=== PATIENT | female | born 1990 | race Caucasian/White ===

== ENCOUNTER 2017-01-07 20:53 | Inpatient (IN) | payer BC ==
[~2017-01-07] VITALS: Ht 170.2 cm; Wt 83.9 kg
[~2017-01-07 20:53] MED LIST: DEPO-LUPRON IM; ETOMIDATE 20 MG/10 ML ONE; HYDR-3241 PO; MIDAZOLAM 1 MG/ML, 5ML ONE; PHEN37.53 PO; PHENERGAN PO; PROPOFOL 10 MG/ML, 100ML IV ONE; SUCCINYLCHOLINE 20 MG/ML, 10ML ONE; VECURONIUM 10 MG ONE
[2017-01-07] MEDS ORDERED: FENTANYL PF 100 MCG/2ML ONE (21:27)
[2017-01-07] MEDS ORDERED: SODIUM CHLORIDE 0.9% 1,000ML IVBOLUS ONE ×2 (21:30)
[2017-01-07] MEDS ORDERED: FENTANYL PF 100 MCG/2ML IV ONE (21:30)
[2017-01-07] MEDS ORDERED: PROPOFOL 100 ML IV PRN (21:30)
[2017-01-07] MEDS ORDERED: SUCCINYLCHOLINE 20 MG/ML, 10ML IVPush ONE (21:30)
[2017-01-07] MEDS ORDERED: FENTANYL PF 100 MCG/2ML IVPush PRN (21:30)
[2017-01-07] MEDS ORDERED: ETOMIDATE 20 MG/10 ML IVPush ONE (21:30)
[2017-01-07] MEDS ORDERED: methylPREDNISolone SOD SUCC 125 MG/2 ML IVP ONE (21:30)
[2017-01-07 21:42] LABS: ASPARTATE AMINO TRANSFERASE 30 U/L (15-37); BLOOD UREA NITROGEN 10 mg/dL (7-18)
[2017-01-07 21:47] LABS: ACETAMINOPHEN 5 mcg/mL (10-30)
[2017-01-07 21:48] LABS: DAU SCREEN DISCLAIMER
[2017-01-07 21:48] LABS: IS PT STATUS REG ER OR PRE ER? YES
[2017-01-07] MEDS ORDERED: FAMOTIDINE 20 MG/2 ML IVPush ONE (22:30)
[2017-01-07] MEDS ORDERED: FENTANYL PF 2,500 MCG in SODIUM CHLORIDE 0.9% 200 ML IV PRN (22:30)
[2017-01-07] MEDS ORDERED: MIDAZOLAM 1 MG/ML, 5ML IVPush ONE (22:30)
[2017-01-07] MEDS ORDERED: SODIUM CHLORIDE 0.9% 1,000 ML IV ONE (22:44)
[2017-01-07 22:57] VITALS: BP 106/59
[2017-01-07] MEDS ORDERED: ONDANSETRON 2MG/ML, 2ML IVPush PRN (23:00)
[2017-01-07] MEDS ORDERED: methylPREDNISolone SOD SUCC 125 MG/2 ML ONE (23:09)
[2017-01-07] MEDS ORDERED: ONDANSETRON 2MG/ML, 2ML ONE (23:09)
[2017-01-07] MEDS ORDERED: FAMOTIDINE 20 MG/2 ML ONE (23:09)
[2017-01-07] MEDS ORDERED: SENNOSIDES 8.8 MG/5 ML ORAL SOL NG PRN (23:30)
[2017-01-07] MEDS ORDERED: BISACODYL 10 MG SUPP PR PRN (23:30)
[2017-01-07] MEDS ORDERED: PHARMACY MAY ADJ FOR RENAL FX MC SCH (23:30)
[2017-01-07] MEDS: FAMOTIDINE 20 MG/2 ML IV SCH (23:30)
[2017-01-07] MEDS ORDERED: LACTULOSE 20 GM/30 ML UDC NG PRN (23:30)
[2017-01-07] MEDS ORDERED: SENNA/DOCUSATE TABLET NG PRN (23:30)
[2017-01-07] MEDS ORDERED: LIDOCAINE-MPF 1%, 2ML ENDO PRN (23:30)
[2017-01-07] MEDS ORDERED: PROPOFOL 100 ML IV ONE (23:52)
[2017-01-07 23:56] LABS: ABG COLLECTION SITE LEFT RADIAL; COLLATERAL CIRCULATION TESTING NORMAL
[2017-01-08] MEDS ORDERED: BISACODYL 10 MG SUPP PR PRN
[2017-01-08] MEDS ORDERED: PROMETHAZINE 25 MG/ML, 1ML IM PRN
[2017-01-08] MEDS: POTASSIUM CHLORIDE 40 MEQ in SODIUM CHLORIDE 0.9% 1,000 ML IV SCH ×2 (00:24→06:19)
[2017-01-08] MEDS ORDERED: MIDAZOLAM HCL 50 MG in SODIUM CHLORIDE 0.9% 240 ML IV PRN (01:00)
[2017-01-08] MEDS: ENOXAPARIN 40 MG/0.4 ML SQ SCH (01:42)
[2017-01-08] MEDS: methylPREDNISolone SOD SUCC 125 MG/2 ML IVPush SCH ×4 (01:42→18:03)
[2017-01-08] MEDS ORDERED: ALBUTEROL SULFATE 2.5 MG/3 ML ONE (02:29)
[2017-01-08] MEDS ORDERED: PROPOFOL 100 ML IV PRN (03:30)
[2017-01-08 04:38] LABS: ABG COLLECTION SITE LEFT RADIAL; COLLATERAL CIRCULATION TESTING NORMAL
[2017-01-08 04:42] LABS: BLOOD UREA NITROGEN 9 mg/dL (7-18)
[2017-01-08] MEDS: morphine SULFATE 10 MG/ML, 1ML IVPush PRN ×5 (08:20→21:13)
[2017-01-08] MEDS ORDERED: HYDR-879 PO (09:12)
[2017-01-08] MEDS ORDERED: RACEPINEPHRINE INH 2.25%, 0.5ML ONE (09:26)
[2017-01-08] MEDS: HYDROcodone/APAP 10/325 MG TABLET PO PRN ×3 (09:29→22:25)
[2017-01-08] MEDS: ONDANSETRON 2MG/ML, 2ML IVPush PRN ×3 (11:17→22:25)
[2017-01-08] MEDS: FAMOTIDINE 20 MG/2 ML IV SCH (12:05)
[2017-01-09] MEDS: FAMOTIDINE 20 MG/2 ML IV SCH (00:10)
[2017-01-09] MEDS: methylPREDNISolone SOD SUCC 125 MG/2 ML IVPush SCH ×3 (00:11→12:00)
[2017-01-09] MEDS: ENOXAPARIN 40 MG/0.4 ML SQ SCH (02:04)
[2017-01-09] MEDS: morphine SULFATE 10 MG/ML, 1ML IVPush PRN ×2 (02:05→05:54)
[2017-01-09] MEDS: ONDANSETRON 2MG/ML, 2ML IVPush PRN (04:35)
[2017-01-09] MEDS: HYDROcodone/APAP 10/325 MG TABLET PO PRN ×2 (04:35→09:21)
[2017-01-09 04:46] LABS: ABG COLLECTION SITE LEFT RADIAL; COLLATERAL CIRCULATION TESTING NORMAL
[2017-01-09 04:58] LABS: BLOOD UREA NITROGEN 14 mg/dL (7-18)
[2017-01-09] MEDS ORDERED: GABA300C10 PO (08:16)
[2017-01-09] MEDS ORDERED: FAMOTIDINE 20 MG TABLET PO SCH (10:00)
[2017-01-09] MEDS ORDERED: METH4TAB2 PO (10:20)
[2017-01-09] MEDS ORDERED: EPIN0.3P2 IM (10:20)
[2017-01-09] MEDS ORDERED: FLUCONAZOLE 100 MG TABLET PO ONE (11:00)
[2017-01-10 11:07] LABS: COMPLEMENT C3 131 mg/dL (82-167); COMPLEMENT C4 27 mg/dL (14-44); COMPLEMENT TOTAL (CH50) 55 U/mL (42-60)
== END 2017-01-09 13:44 | disposition home or self-care (01) | DRG 915 ==
LOC: ED 21:43 → EDIP 22:44 → CCU 23:39
PROC: 5A1935Z Respiratory Ventilation, Less than 24 Consecutive Hours (ICD-10-PCS; principal; 2017-01-07)
PROC: 0BH17EZ Insertion of Endotracheal Airway into Trachea, Via Natural or Artificial Opening (ICD-10-PCS; 2017-01-07)
PROC: 0T9B70Z Drainage of Bladder with Drainage Device, Via Natural or Artificial Opening (ICD-10-PCS; 2017-01-07)
DX: T78.2XXA Anaphylactic shock, unspecified, initial encounter (principal); J96.01 Acute respiratory failure with hypoxia; G92 Toxic encephalopathy; J93.82 Other air leak; Z99.11 Dependence on respirator [ventilator] status; B37.3 Candidiasis of vulva and vagina; M54.9 Dorsalgia, unspecified; E87.6 Hypokalemia; R78.0 Finding of alcohol in blood; Z79.890 Hormone replacement therapy; Z87.892 Personal history of anaphylaxis; Z88.5 Allergy status to narcotic agent; Z90.710 Acquired absence of both cervix and uterus; Z90.49 Acquired absence of other specified parts of digestive tract
CPT/HCPCS: 36415; 36600; 70450; 71010; 80048; 80053; 80307; 80329; 81003; 82803; 83735; 84478; 84484; 85025; 86160; 86162; 87070; 87081; 87205; 93005; 94002; 94003; 94640; 96361; 96365; 96375; J1650; J2250; J2405; J2704; J3010; J3480; G0480; J0330; J2270; J2930; J7030; J7050; S0028

== ENCOUNTER 2018-10-01 10:49 | Emergency (ER) | payer BC ==
[~2018-10-01] VITALS: Ht 165.1 cm; Wt 74.0 kg
[~2018-10-01 10:49] MED LIST changes: +EPIN0.3P2 IM; -ETOMIDATE 20 MG/10 ML ONE; +GABA300C10 PO; +HYDR-3622 PO; +METH4TAB2 PO; -MIDAZOLAM 1 MG/ML, 5ML ONE; -PROPOFOL 10 MG/ML, 100ML IV ONE; -SUCCINYLCHOLINE 20 MG/ML, 10ML ONE; -VECURONIUM 10 MG ONE
[2018-10-01] MEDS ORDERED: HYDROcodone/APAP 5/325 TABLET ONE (11:50)
[2018-10-01] MEDS ORDERED: ONDANSETRON ODT 4 MG ONE (11:50)
[2018-10-01] MEDS ORDERED: HYDROcodone/APAP 5/325 TABLET PO ONE (12:00)
[2018-10-01] MEDS ORDERED: ONDANSETRON ODT 4 MG PO ONE (12:00)
[2018-10-01 12:40] LABS: ALBUMIN 4.1 g/dL (3.4-5.0); ANION GAP 8 mmol/L (5-15); CALCIUM 9.5 mg/dL (8.5-10.1); CHLORIDE 102 mmol/L (98-107); CREATININE 0.77 mg/dL (0.55-1.02)
[2018-10-01 12:42] LABS: MEAN CORPUSCULAR HEMOGLOBIN 34.8 pg (27.0-34.8); MEAN CORPUSCULAR HGB CONC 33.2 g/dL (32.4-35.8); MEAN CORPUSCULAR VOLUME 104.8 fL (80-100); RED BLOOD COUNT 3.93 x10^6/uL (3.82-5.3); RED CELL DISTRIBUTION WIDTH 15.7 % (9.6-15.2)
--- NOTE | 2018-10-01 12:45 | NUR ---
lab called critical lab wbc of 1.9 provider made aware.
[2018-10-01 12:52] LABS: MICROSCOPIC NOT IND
[2018-10-01 12:53] LABS: MD YES
[2018-10-01 12:55] LABS: MEAN PLATELET VOLUME 6.7 fL (7.4-10.4); PLATELET COUNT 108 x10^3/uL (130-400)
[2018-10-01 12:59] LABS: BASOS#(MANUAL) 0.04 x10^3/uL (0-0.1); BASOS% (MANUAL) 2 % (0-1); EOS#(MANUAL) 0.04 x10^3/uL (0.0-0.4); EOS% (MANUAL) 2 % (1-7); LYMPH#(MANUAL) 0.27 x10^3/uL (1-3.4); LYMPHS% (MANUAL) 14 % (22-44); MONOS#(MANUAL) 0.23 x10^3/uL (0.3-2.7); MONOS% (MANUAL) 12 % (2-9); REACTIVE LYMPHS # (MANUAL) 0.04 x10^3/uL (0-0); REACTIVE LYMPHS % (MANUAL) 2 % (0-0)
[2018-10-01 13:00] LABS: CULTURE INDICATED? NO
[2018-10-01 13:03] LABS: <PLATELET ESTIMATE> DECREASED; <PLT MORPHOLOGY> NORMAL PLT MORPH; ANISOCYTOSIS 1+
[2018-10-01 13:04] LABS: BAND#(MANUAL) 0.15 x10^3/uL; BANDS%(MANUAL) 8 % (0-7); SEG#(MANUAL) 1.14 x10^3/uL (1.8-6.8); SEGS% (MANUAL) 60 % (42-75)
[2018-10-01 13:36] VITALS: BP 126/84
== END 2018-10-01 14:27 | disposition home or self-care (01) ==
LOC: ED 11:28
DX: T37.0X5A Adverse effect of sulfonamides, initial encounter (principal); R55 Syncope and collapse; Z90.710 Acquired absence of both cervix and uterus; Z90.49 Acquired absence of other specified parts of digestive tract; Y92.89 Other specified places as the place of occurrence of the external cause
CPT/HCPCS: 36415; 70450; 73030; 80048; 81003; 82040; 84703; 85025; 93005; 99284; Q0162